=== PATIENT | male | born 1975 | race Caucasian/White ===

== ENCOUNTER 2021-07-21 11:47 | Emergency (ER) | payer MEDICAID, OTHER, SELFPAY ==
[2021-07-21 12:02] VITALS: BP 145/86; PULSE 118; RESP 21; TEMP 36.4; O2SAT 95; BMI 27.4
--- NOTE | 2021-07-21 12:18 | ECG_ITS ---
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 Measurements Intervals [place] Rate: 93 P: 55 MS: 146 QRS: 71 QRSD: 84 T: 47 QT: 346 QTc: 430 Interpretive Statements SINUS RHYTHM Possible old septal CA No previous ECG available for comparison Electronically Signed On 07-21-2021 23:43:42 PARKING ENFORCEMENT MANAGER by Abdirizak Trivedi M.D. [id number]
--- NOTE | 2021-07-21 12:20 | XR_ITS ---
WS: [id number] Chest 2 views, 07/21/2021 Clinical Data: wheezing Comparison: None. Findings: No nodules, masses or effusions are seen. The heart is normal. The pulmonary vascularity is not increased. No pneumonia or pneumothorax is seen. The diaphragms are flattened. There is an anter ior cervical disc fusion. XR/XR chest 2V* [id number] Impression: Hyperinflation.
--- NOTE | 2021-07-21 13:10 | ED_ITS ---
HPI - SOB/Dyspnea General: Chief Complaint: Shortness of Breath/Dyspnea Stated Complaint: SOB Time Seen by Provider: 07/21/21 12:06 Source: patient and family Mode of arrival: ambulatory History of Present Illness: HPI Narrative: 46-year-old male presents emergency department chief complaint of progressive shortness of breath difficulty breathing productive cough is been getting worse the last 3 to 4 days. Patient reports history of pneumonia and bronchitis. Reports that he has also had a headache that developed as well as coughing reports lots of sputum production ranging from clearish to greenish. Patient reports having no other associated symptoms reports no recent sick or ill contacts. MD elicited complaint: shortness of breath and cough Pertinent past history: pneumonia Context: recent illness Timing: constant and progressively worsening Severity: moderate Relieving factors: rest and upright position Associated symptoms: Reports chest congestion; Deny abdominal pain, chest pain, extremity pain, fever(s), nausea, palpitations or vomiting Related Data: Home oxygen amount: none Review of Systems General: Reports: 10 or more systems reviewed and unremarkable except in HPI and below Const: Denies: fever(s), chills, fatigue or malaise Eyes: Denies: change in vision or blurry vision Card: Denies: chest pain or palpitations Resp: Reports: dyspnea, productive cough, wheezing, change in phlegm color and chest congestion GI: Denies: abdominal pain, nausea or vomiting : Denies: flank pain Musc: Denies: extremity pain or extremity swelling Skin/Breast: Denies: rash or pruritus Neuro: Denies: headache(s) Psych: Denies: anxiety or depression Jasson/Lymph: Denies: easy bleeding All/Imm: Denies: urticaria, throat swelling or facial swelling Physical Exam Narrative: EXAM NARRATIVE: Patient appears in no obvious acute distress however is actively heavily expiratory wheezing on exam. Const: COMMON NORMALS: no acute distress, patient oriented x3 and healthy appearing HENMT: COMMON NORMALS: normocephalic and atraumatic HEAD & SCALP: normocephalic and atraumatic Eye: COMMON NORMALS: Equal, round and reactive pupils present and EOMs intact bilaterally PUPIL: Yes Equal, round and reactive pupils present Neck/C-Spine: COMMON NORMALS: full ROM, supple and no JVD Lymph: LYMPHATIC: no lymphadenopathy noted Chest: COMMONS NORMALS: normal inspection of the chest and normal palpation of entire chest wall Resp: COMMON NORMALS: normal respiratory effort and No retractions EFFORT & INSPECTION: Yes able to speak in complete sentences and Yes symmetric chest movement AUSCULTATION: wheezes (Both inspiratory and expiratory diffuse wheezing noted on exam) expiratory wheezes and inspiratory wheezes and bronchial breath sounds Cardio: COMMON NORMALS: no JVD and regular rate; negative for regular rhythm (Moderate tachycardia noted exam rate in 115- 120 range) RATE: regular rate RHYTHM: abnormal rhythm (Moderate tachycardia noted exam rate in 115- 120 range) GI: COMMON NORMALS: Normal to inspection, nondistended, normoactive bowel sounds present, Soft to palpation and non-tender INSPECTION: Yes normal to inspection PALPATION: Yes Soft to palpation : COMMON NORMALS: Yes no CVA tenderness BLADDER/KIDNEY EXAM: Yes no CVA tenderness Back/Pelvis: COMMON NORMALS: no CVA tenderness Extremity: COMMON NORMALS: normal to inspection and full ROM Neuro: COMMON NORMALS: patient oriented x3, CN's II-XII intact bilaterally, moves all extremities and no focal motor deficits Psych: COMMON NORMALS: mental status grossly normal, Normal thought process present, cooperative and normal affect THOUGHT PROCESS: Normal thought process present Skin: COMMON NORMALS: no rashes or lesions noted GENERAL SKIN EXAM: no juan miguel hes or lesions noted Course Vital Signs: Vital signs: Vital Signs Temperature 97.6 F 07/21/21 12:02 Pulse Rate 105 H 07/21/21 13:48 Respiratory Rate 18 07/21/21 13:48 Blood Pressure 146/122 07/21/21 13:36 Pulse Oximetry 93 07/21/21 13:48 MDM - SOB/Dyspnea MDM Narrative: Medical decision making narrative: Due to the patient's symptoms and condition lab work and imaging will be obtained we will continue to follow EKG looked unremarkable due to the patient's symptoms and condition lab work and imaging will be obtained we will continue to follow medication with provider for his breathing difficulties as well. Patient was found to have acute bronchitis he did have a slight white blood cell count elevation start him on some antibiotics for this no obvious pneumonia or infiltrate was noted on his chest x-ray as well as his Covid and influenza swabs came back negative patient was advised further follow-up with primary care in 2 to 3 days which is advised to return in the interim if any of his symptoms persist or worse. Lab Data: Labs: Lab Results 07/21/21 07/21/21 07/21/21 13:00 13:00 13:00 WBC 13.0 10^3/uL H 10 ^3/uL (4.0-10.0) RBC 5.78 10^6/uL H 10 ^6/uL (4.1-5.3) Hgb 17.8 g/dL H g/dL (11.7-16.6) Hct 52.8 % H % (42.0-52.0) MCV 91.3 fl fl (80-94) MCH 30.8 pg pg (28.0-34.0) MCHC 33.7 g/dL g/dL (30.0-36.0) RDW 12.2 % % (12.1-15.1) Plt Count 360 10^3/cmm 10^3 /cmm (130-400) MPV 9.2 fL fL (7.4-10.4) Neut % (Auto) 65.2 % % Lymph % (Auto) 17.4 % % [place] % (Auto) 9.8 % % Eos % (Auto) 6.8 % % Baso % (Auto) 0.5 % % Neut # (Auto) 8.48 10^3/uL H 10 ^3/uL (1.8-7.7) Lymph # (Auto) 2.3 10^3/uL 10^3/ uL (0.8-4.8) [place] # (Auto) 1.3 10^3/uL H 10^ 3/uL (0.2-0.9) Eos # (Auto) 0.9 10^3/uL H 10^ 3/uL (0.0-0.8) Baso # (Auto) 0.1 10^3/uL 10^3/ uL (0.0-0.1) Nucleated RBC % (a uto) 0 % % Nucleated RBCs # 0.0 /100WBC /100W BC Sodium 138 mmol/L mmol/L (136-145) Potassium 4.4 mmol/L mmol/L (3.5-5.1) Chloride 100 mmol/L mmol/L (98-107) Carbon Dioxide 23 mmol/L mmol/L (22-29) Anion Gap 19.4 H (5-19) BUN 7 mg/dL mg/dL (6-20) Creatinine 0.7 mg/dL mg/dL (0.7-1.2) GFR Calculation 120.4 mL/min mL/m in (90-130) Glucose 106 mg/dL mg/dL (65-115) Calculated Osmolal ity 284 mOsm/kg L mOs m/kg (285-295) Lactic Acid 1.5 mmol/L mmol/L (0.5-2.2) Calcium 9.3 mg/dL mg/dL (8.5-10.5) Total Bilirubin 0.8 mg/dL mg/dL (0.15-1.2) AST 22 U/L U/L (0-40) ALT 20 U/L U/L (0-41) Alkaline Phosphata se 84 IU/L IU/L (40-130) Total Protein 7.3 g/dL g/dL (6.6-8.7) Albumin 4.7 g/dL g/dL (3.5-5.2) Globulin 2.6 g/dL g/dL (1.3-4.6) Influenza Type A A g Influenza Type B A g SARS-CoV-2 Ag (Rap id) 07/21/21 07/21/21 13:00 13:00 WBC RBC Hgb Hct MCV MCH MCHC RDW Plt Count MPV Neut % (Auto) Lymph % (Auto) [place] % (Auto) Eos % (Auto) Baso % (Auto) Neut # (Auto) Lymph # (Auto) [place] # (Auto) Eos # (Auto) Baso # (Auto) Nucleated RBC % (a uto) Nucleated RBCs # Sodium Potassium Chloride Carbon Dioxide Anion Gap BUN Creatinine GFR Calculation Glucose Calculated Osmolal ity Lactic Acid Calcium Total Bilirubin AST ALT Alkaline Phosphata se Total Protein Albumin Globulin Influenza Type A A g Negative (Negative) Influenza Type B A g Negative (Negative) SARS-CoV-2 Ag (Rap id) Negative (Negative) Discharge Plan Discharge Patient Disposition: Home Clinical Impression: Acute bronchitis Condition: Stable Prescriptions: New prednisone 20 mg tablet 20 mg PO BID 7 Days Qty: 14 RF: 0 Ventolin HFA 90 mcg/actuation HFA aerosol inhaler 2 inh inhalation Q4H PRN (Reason: shortness of breath or wheezing) Qty: 8.5 RF: 0 Tessalon Perles 100 mg capsule 100 mg PO TID PRN (Reason: cough) Qty: 20 RF: 0 azithromycin 250 mg tablet See Rx Instructions .ROUTE .COMPLEX Qty: 6 RF: 0 Discharge Orders: Discharge ED (Routine); Ordered 07/21/21 Ordered By: Elvis Abdi Referrals: Onel Archuleta MD [Staff Physician] - (in 2-3 days if you do not have a primary care doctor. ) Discharge Diet: Advance as tolerated Patient Instructions: COPD (Chronic Obstructive Pulmonary Disease) (ED), How to Use a Nebulizer (ED), Wheezing (ED) Coding Level of Care Code ED Manager Water for Chg Fwd Exam Comprehensive
[2021-07-21 13:20] LABS: Basophils # 0.1 10^3/uL (0.0-0.1); Basophils % 0.5 %; Eosinophils # 0.9 10^3/uL (0.0-0.8); Eosinophils % 6.8 %; Hematocrit 52.8 % (42.0-52.0); Hemoglobin 17.8 g/dL (11.7-16.6); Lymphocytes # 2.3 10^3/uL (0.8-4.8); Lymphocytes % 17.4 %; Mean Corpuscular HGB Conc 33.7 g/dL (30.0-36.0); Mean Corpuscular Hemoglobin 30.8 pg (28.0-34.0); Mean Corpuscular Volume 91.3 fl (80-94); Mean Platelet Volume 9.2 fL (7.4-10.4); Monocytes # 1.3 10^3/uL (0.2-0.9); Monocytes % 9.8 %; Neutrophils # 8.48 10^3/uL (1.8-7.7); Neutrophils % 65.2 %; Nucleated Red Blood Cells % 0 %; Platelet Count 360 10^3/cmm (130-400); Red Blood Count 5.78 10^6/uL (4.1-5.3); Red Cell Distribution Width 12.2 % (12.1-15.1)
[2021-07-21] MEDS: sodium chloride 0.9% 1,000 ML 999 ML IV (13:32)
[2021-07-21] MEDS: magnesium sulfate premix 2 GM/50 ML PIGGYBACK IV (13:34)
[2021-07-21 13:35] VITALS: PULSE 105; RESP 18; O2SAT 94
[2021-07-21] MEDS: ipratropium-albuterol 3 mL Neb INHALATION (13:35)
[2021-07-21 13:36] VITALS: BP 146/122; PULSE 105; RESP 18; O2SAT 93
[2021-07-21 13:38] LABS: Lactic Sepsis W/Reflex 1.5 mmol/L (0.5-2.2)
[2021-07-21 13:39] LABS: Alanine Aminotransferase 20 U/L (0-41); Albumin Level 4.7 g/dL (3.5-5.2); Alkaline Phosphatase 84 IU/L (40-130); Anion Gap 19.4 (5-19); Aspartate Amino Transferase 22 U/L (0-40); Blood Urea Nitrogen 7 mg/dL (6-20); Calcium 9.3 mg/dL (8.5-10.5); Carbon Dioxide 23 mmol/L (22-29); Chloride 100 mmol/L (98-107); Globulin 2.6 g/dL (1.3-4.6); Glomerular Filtration Rate 120.4 mL/min (90-130); Glucose 106 mg/dL (65-115); Osmolality Calculated 284 mOsm/kg (285-295); Potassium 4.4 mmol/L (3.5-5.1); Sodium 138 mmol/L (136-145); Total Bilirubin 0.8 mg/dL (0.15-1.2); Total Protein 7.3 g/dL (6.6-8.7)
[2021-07-21 13:45] LABS: Influenza A by IFA Negative (Negative); Influenza B by IFA Negative (Negative); SARS Covid-2 Antigen Negative (Negative)
[2021-07-21 13:48] VITALS: PULSE 105; RESP 18; O2SAT 93
[2021-07-21] MEDS: cefTRIAXone 1,000 MG in sodium chloride 0.9% (plus) 50 ML 100 MG IV (15:06)
[2021-07-21 15:07] VITALS: BP 120/77; PULSE 95; RESP 16; O2SAT 92
[2021-07-21 15:55] VITALS: BP 120/77; PULSE 83; RESP 18; O2SAT 92
== END 2021-07-21 15:59 | disposition home or self-care (01) ==
PROVIDERS: Emergency Provider Emergency Medicine
DX: J20.9 Acute bronchitis, unspecified (principal); Z20.822 Contact with and (suspected) exposure to COVID-19
CPT/HCPCS: 71046; 80053; 83605; 85025; 87070; 87205; 87426; 87804; 93005; 94640; 96365; 96367; 96375; 99284; J0696; J2930; J3475; J7030

== ENCOUNTER 2021-08-02 06:20 | Emergency (ER) | payer MEDICAID, OTHER, SELFPAY ==
[2021-08-02] VITALS (10 sets, daily range): BP systolic 122–170; BP diastolic 96–104; PULSE 85–103; RESP 11–22; TEMP 36.7; O2SAT 90–98; BMI 27.4
--- NOTE | 2021-08-02 06:34 | XRR_ITS ---
PROCEDURE INFORMATION: Exam: XR Chest Exam date and time: 08/02/2021 6:34 AM Age: 46 years old Clinical indication: Cough and shortness of breath and other: Bronchitis? ; Patient HX: Dyspnea; Cough; Bronchitis? . Has been on prednisone; After predisone done came back TECHNIQUE: Imaging protocol: XR of the chest. Views: 1 view. Total images: 1 COMPARISON: CR XR chest 2V* [id number] 07/21/2021 12:31 PM FINDINGS: Lungs: Unremarkable. No consolidation. Pleural spaces: Unremarkable. No pleural effusion. No pneumothorax. Heart/Mediastinum: Unremarkable. No cardiomegaly. Bones/joints: Unremarkable. XR/XR chest 1V portable [id number] IMPRESSION: No acute findings.
--- NOTE | 2021-08-02 06:35 | W.ED.SOB ---
HPI - SOB/Dyspnea General: Chief Complaint: Shortness of Breath/Dyspnea Stated Complaint: TROUBLE BREATHING,WHEEZING,CHEST TIGHTNESS Time Seen by Provider: 08/02/21 06:30 History of Present Illness: HPI Narrative: 46-year-old male presents emergency room with complaints of shortness of breath and cough. He was seen on 07 21 as well treated with steroids Zithromax and albuterol. He was improving until the steroids read out that he began to have trouble again. He did get a rapid Covid at that time which was negative but there was no PCR done. He denies any chest pain he has not had any productive cough. He is a former heavy smoker but quit about 18 years ago. He is not previously been vaccinated for Covid nor has he been known to test positive in the past. MD elicited complaint: shortness of breath and cough Pertinent past history: COPD Onset (ago): week(s) Timing: constant and progressively worsening Severity: moderate Exacerbating factors: exertion and coughing Relieving factors: rest, bronchodilators and other (steriods) Known history of: COPD Associated symptoms: Reports chest congestion and cough; Deny abdominal pain, chest pain, diaphoresis, dizziness, extremity pain, fever(s), hemoptysis, lightheadedness, myalgias, nausea, orthopnea, palpitations, paresthesias, polydipsia, polyuria, rash, sense of impending doom, syncope or vomiting Treatment prior to arrival: oxygen and bronchodilator Review of Systems Const: Denies: fever(s) or diaphoresis ENMT: Denies: throat pain, ear or mastoid pain, nasal discharge or nasal congestion Card: Denies: chest pain, palpitations, lightheadedness, syncope or orthopnea Resp: Reports: dyspnea, non-productive cough, wheezing and chest congestion; Denies: hemoptysis GI: Denies: abdominal pain, nausea or vomiting : Denies: flank pain, dysuria, urinary frequency or urinary urgency Musc: Denies: extremity pain Skin/Breast: Denies: rash or pruritus Neuro: Denies: dizziness Endo: Denies: polyuria or polydipsia Physical Exam Const: GENERAL APPEARANCE: cooperative and comfortable ORIENTATION/CONSCIOUSNESS: Yes awake, Yes oriented to person, Yes oriented to place and Yes oriented to time HENMT: COMMON NORMALS: normocephalic, atraumatic and hearing grossly normal bilaterally HEAD & SCALP: normocephalic and atraumatic Resp: EFFORT & INSPECTION: Yes tachypneic and Yes pursed lip breathing AUSCULTATION: rhonchi and wheezes Cardio: COMMON NORMALS: regular rhythm and No murmurs present (Cardio) RATE: tachycardic RHYTHM: regular rhythm GI: COMMON NORMALS: Soft to palpation and No hepatosplenomegaly present AUSCULTATION: Yes normoactive bowel sounds PALPATION: Yes Soft to palpation, No Tenderness to palpation present (GI), No Guarding due to palpation present (GI) and Yes No hepatosplenomegaly present Extremity: COMMON NORMALS: normal to inspection, capillary refill normal, no clubbing, cyanosis or edema, no calf tenderness and no pedal edema Neuro: SENSORIUM/ORIENTATION: Yes oriented to person, Yes oriented to place and Yes oriented to time Skin: COMMON NORMALS: no rashes or lesions noted GENERAL SKIN EXAM: no rashes or lesions noted Course Vital Signs: Vital signs: Vital Signs Temperature 98.0 F 08/02/21 06:26 Pulse Rate 85 08/02/21 08:57 Respiratory Rate 18 08/02/21 08:56 Blood Pressure 122/96 08/02/21 08:25 Pulse Oximetry 94 08/02/21 08:56 MDM - SOB/Dyspnea MDM Narrative: Medical decision making narrative: Labs imaging and EKGs reviewed as found on the chart. Patient has been much better after the albuterol inhaler. He was coached through using the inhaler by the respiratory recreation therapy aides teacher and noted that at home he had been using it wrong he states he had significant improvement after RT helped him use the medication prior he states he just had the taste of the medication his mouth but really did not have any breathing improvement. Chest x-ray does not show any sign of pneumonia. I think with better use of the albuterol he will have follow less issues. More importantly he needs to be on maintenance medication we will start him on Symbicort 2 puffs twice daily. He will get him set up for pulmonary function test and have him see pulmonology as well. In the interim while he is starting the Symbicort we will put him on another Medrol Dosepak. Return if he has any further problems. We did screen today for COVID-19 with a PCR if that is positive we will contact him asked him to remain in quarantine until the results are back. Lab Data: Labs: Lab Results 08/02/21 08/02/21 08/02/21 06:28 06:28 06:28 WBC 10.3 10^3/uL H 10 ^3/uL (4.0-10.0) RBC 5.70 10^6/uL H 10 ^6/uL (4.1-5.3) Hgb 17.7 g/dL H g/dL (11.7-16.6) Hct 52.3 % H % (42.0-52.0) MCV 91.8 fl fl (80-94) MCH 31.1 pg pg (28.0-34.0) MCHC 33.8 g/dL g/dL (30.0-36.0) RDW 11.9 % L % (12.1-15.1) Plt Count 324 10^3/cmm 10^3 /cmm (130-400) MPV 9.0 fL fL (7.4-10.4) Neut % (Auto) 52.3 % % Lymph % (Auto) 23.1 % % [place] % (Auto) 13.1 % % Eos % (Auto) 10.3 % % Baso % (Auto) 0.5 % % Neut # (Auto) 5.37 10^3/uL 10^3 /uL (1.8-7.7) Lymph # (Auto) 2.4 10^3/uL 10^3/ uL (0.8-4.8) [place] # (Auto) 1.3 10^3/uL H 10^ 3/uL (0.2-0.9) Eos # (Auto) 1.1 10^3/uL H 10^ 3/uL (0.0-0.8) Baso # (Auto) 0.1 10^3/uL 10^3/ uL (0.0-0.1) Nucleated RBC % (a uto) 0 % % Nucleated RBCs # 0.0 /100WBC /100W BC PT 11.70 SECONDS L S ECONDS (12.1-14.9) INR 0.83 (0.8-1.2) APTT 25.8 SECONDS SECO NDS (23.9-36.7) D-Dimer 0.34 ug/mIFEU ug/ mIFEU (0-0.59) Sodium 140 mmol/L mmol/L (136-145) Potassium 4.3 mmol/L mmol/L (3.5-5.1) Chloride 101 mmol/L mmol/L (98-107) Carbon Dioxide 30 mmol/L H mmol/ L (22-29) Anion Gap 13.3 (5-19) BUN 8 mg/dL mg/dL (6-20) Creatinine 0.8 mg/dL mg/dL (0.7-1.2) GFR Calculation 103.2 mL/min mL/m in (90-130) Glucose 100 mg/dL mg/dL (65-115) Calculated Osmolal ity 288 mOsm/kg mOsm/ kg (285-295) Calcium 9.0 mg/dL mg/dL (8.5-10.5) Total Bilirubin 0.4 mg/dL mg/dL (0.15-1.2) AST 17 U/L U/L (0-40) ALT 26 U/L U/L (0-41) Alkaline Phosphata se 85 IU/L IU/L (40-130) Creatine Kinase 309 U/L H U/L (39-308) Troponin T Baselin e Troponin T 120 Min ethan Delta Troponin T Total Protein 6.8 g/dL g/dL (6.6-8.7) Albumin 4.5 g/dL g/dL (3.5-5.2) Globulin 2.3 g/dL g/dL (1.3-4.6) SARS-CoV-2 Ag (Rap id) 08/02/21 08/02/21 08/02/21 06:28 06:52 08:22 WBC RBC Hgb Hct MCV MCH MCHC RDW Plt Count MPV Neut % (Auto) Lymph % (Auto) [place] % (Auto) Eos % (Auto) Baso % (Auto) Neut # (Auto) Lymph # (Auto) [place] # (Auto) Eos # (Auto) Baso # (Auto) Nucleated RBC % (a uto) Nucleated RBCs # PT INR APTT D-Dimer Sodium Potassium Chloride Carbon Dioxide Anion Gap BUN Creatinine GFR Calculation Glucose Calculated Osmolal ity Calcium Total Bilirubin AST ALT Alkaline Phosphata se Creatine Kinase Troponin T Baselin e 12 ng/L ng/L (0-15) Troponin T 120 Min ethan 12.30 ng/L ng/L (0-15) Delta Troponin T 0.30 ABS# ABS# (0-10) Total Protein Albumin Globulin SARS-CoV-2 Ag (Rap id) Negative (Negative) Discharge Plan Discharge Patient Disposition: Home Clinical Impression: Acute exacerbation of chronic obstructive airways disease Condition: Stable Prescriptions: New Medrol (Macario) 4 mg tablets,dose pack See Rx Instructions .ROUTE .COMPLEX Qty: 21 RF: 0 Symbicort 80-4.5 mcg/actuation HFA aerosol inhaler 2 inh inhalation BID Qty: 10.2 RF: 0 No Action Tylenol PM Extra Strength 25-500 mg Tablet 2 tab PO BEDTIME PRN (Reason: Sleep) RF: 0 magnesium 1 cap PO DAILY RF: 0 zinc 1 cap PO DAILY RF: 0 albuterol sulfate [Ventolin HFA] 90 mcg/actuation HFA aerosol inhaler 2 inh inhalation Q4H PRN (Reason: shortness of breath or wheezing) Qty: 8.5 RF: 0 benzonatate [Tessalon Perles] 100 mg capsule 100 mg PO TID PRN (Reason: cough) Qty: 20 RF: 0 Discharge Orders: Discharge ED (Routine); Ordered 08/02/21 Ordered By: Eliel Nieto Discharge Diet: Usual diet Discharge Activity: Increase activity as tolerated Patient Instructions: Opioid Safety Activity Restrictions/Additional Instructions: manager statistics will make arrangements for you to have outpatient pulmonary function test and then follow-up with pulmonology. Coding Level of Care Code ED Conservation Policy Analyst for Margaret Fwd Exam Detailed
[2021-08-02 06:43] LABS: Basophils # 0.1 10^3/uL (0.0-0.1); Basophils % 0.5 %; Eosinophils # 1.1 10^3/uL (0.0-0.8); Eosinophils % 10.3 %; Hematocrit 52.3 % (42.0-52.0); Hemoglobin 17.7 g/dL (11.7-16.6); Lymphocytes # 2.4 10^3/uL (0.8-4.8); Lymphocytes % 23.1 %; Mean Corpuscular HGB Conc 33.8 g/dL (30.0-36.0); Mean Corpuscular Hemoglobin 31.1 pg (28.0-34.0); Mean Corpuscular Volume 91.8 fl (80-94); Monocytes # 1.3 10^3/uL (0.2-0.9); Monocytes % 13.1 %; Neutrophils # 5.37 10^3/uL (1.8-7.7); Neutrophils % 52.3 %; Nucleated Red Blood Cells % 0 %; Platelet Count 324 10^3/cmm (130-400); Red Cell Distribution Width 11.9 % (12.1-15.1); White Blood Count 10.3 10^3/uL (4.0-10.0)
[2021-08-02] MEDS: aspirin 81 mg Chew Tablet 324 MG PO (06:45)
[2021-08-02] MEDS: metoprolol tartrate 1 mg/1 mL SDV 5 mL 5 MG IVP (06:45)
[2021-08-02 06:53] LABS: INR 0.83 (0.8-1.2)
[2021-08-02 06:54] LABS: Partial Thromboplastin Time 25.8 SECONDS (23.9-36.7)
[2021-08-02 06:56] LABS: D Dimer 0.34 ug/mIFEU (0-0.59)
[2021-08-02 07:04] LABS: Alanine Aminotransferase 26 U/L (0-41); Albumin Level 4.5 g/dL (3.5-5.2); Alkaline Phosphatase 85 IU/L (40-130); Anion Gap 13.3 (5-19); Aspartate Amino Transferase 17 U/L (0-40); Blood Urea Nitrogen 8 mg/dL (6-20); Carbon Dioxide 30 mmol/L (22-29); Chloride 101 mmol/L (98-107); Creatine Phosphokinase 309 U/L (39-308); Globulin 2.3 g/dL (1.3-4.6); Glomerular Filtration Rate 103.2 mL/min (90-130); Glucose 100 mg/dL (65-115); Osmolality Calculated 288 mOsm/kg (285-295); Potassium 4.3 mmol/L (3.5-5.1); Sodium 140 mmol/L (136-145); Total Bilirubin 0.4 mg/dL (0.15-1.2); Total Protein 6.8 g/dL (6.6-8.7)
[2021-08-02 07:05] LABS: Troponin(5th) Baseline 12 ng/L (0-15)
[2021-08-02 07:20] LABS: SARS Covid-2 Antigen Negative (Negative)
--- NOTE | 2021-08-02 08:28 | PC.NURSE ---
nurse in room to round and pt states, I feel like I can't breathe right now and can I get a breathing treatment? . Pt's oxygenation 93% and above on room air. ED physician notified of pt's requests
--- NOTE | 2021-08-02 08:34 | ECG_ITS ---
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 Measurements Intervals [place] Rate: 101 P: 73 ME: 133 QRS: 81 QRSD: 81 T: 64 QT: 309 QTc: 401 Interpretive Statements SINUS TACHYCARDIA ABNORMAL RHYTHM ECG Compared to ECG 07/21/2021 14:22:25 Sinus rhythm no longer present Electronically Signed On 08-04-2021 0:15:24 SOFTWARE CONSULTANT by Abdirizak Trivedi M.D. [email or web address] of mississippi medical centerSunlight Foundationeast liverpool city hospitalWetradetogether/store/NU/[id number] f
[2021-08-02] MEDS: dexamethasone 10 mg/mL INJ IVP (08:44)
--- NOTE | 2021-08-02 08:50 | PC.NURSE ---
pt reports improvement in symptoms post inhaler treatment
[2021-08-02] MEDS: albuterol 8 gm MDI 2 PUFF INHALATION (08:53)
--- NOTE | 2021-08-02 12:34 | ECG_ITS ---
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 Measurements Intervals [place] Rate: 80 P: 60 UT: 134 QRS: 75 QRSD: 82 T: 60 QT: 341 QTc: 394 Interpretive Statements SINUS RHYTHM Compared to ECG 07/21/2021 14:22:25 No significant changes Electronically Signed On 08-04-2021 0:16:22 SHIFT STACKER by Abdirizak Trivedi M.D. [email or web address] Technologiesuc [email or web address] Mail/store/[id number]
[2021-08-02 13:52] LABS: Coronavirus Test Green County Not Detected
--- NOTE | 2021-08-02 16:12 | PC.NURSE ---
Pt notified of Negative COVID test
--- NOTE | 2021-08-03 07:42 | DCPLANNER ---
manager baby had message to schedule a follow up appointment for patient with [facility] and to schedule an outpatient PFT. manager baby called [facility], spoke with Meaghan Bauer, gave clinic patients information. A follow up appointment was scheduled for Wednesday, September 01, 2021 at 10:[address] Wise. manager baby called patient, spoke with his , gave her the appointment information. manager baby also faxed signed order to centralized scheduling for the PFT to be scheduled, centralized scheduling will call patient with the appointment information.
--- NOTE | 2021-08-03 09:35 | PC.NURSE ---
No voicemail set up. Pt has not been contacted
--- NOTE | 2021-09-02 06:36 | DCPLANNER ---
Patient had a follow up appointment scheduled with pulmonology for 09.01.21 - patient did attend appointment.
--- NOTE | 2021-09-15 09:24 | DCPLANNER ---
Addendum entered by Maritza Hunter 10/15/21 11:37: Patient had a PFT scheduled for 10.05.21 - patient did attend this appointment. Patient had a follow up appointment scheduled for 09.01.[address] Wise at [facility] - patient did attend appointment. Original Note: Patient has a PFT scheduled for 10.05.21, centralized scheduling will call patient with appointment information.
== END 2021-08-02 09:16 | disposition home or self-care (01) ==
PROVIDERS: Emergency Provider Family Medicine
DX: J44.1 Chronic obstructive pulmonary disease with (acute) exacerbation (principal); Z20.822 Contact with and (suspected) exposure to COVID-19
CPT/HCPCS: 36415; 71045; 80053; 82550; 84484; 85025; 85378; 85610; 85730; 87426; 87635; 93005; 94640; 96374; 96375; 99284; J1100; J3490; J3535

== ENCOUNTER 2021-09-01 11:47 | Outpatient (CLI) | payer MEDICAID, SELFPAY ==
[2021-09-01 12:33] LABS: Basophils # 0.1 10^3/uL (0.0-0.1); Basophils % 0.5 %; Eosinophils # 0.4 10^3/uL (0.0-0.8); Eosinophils % 3.8 %; Hematocrit 52.5 % (42.0-52.0); Hemoglobin 17.2 g/dL (11.7-16.6); Lymphocytes # 2.8 10^3/uL (0.8-4.8); Lymphocytes % 29.1 %; Mean Corpuscular HGB Conc 32.8 g/dL (30.0-36.0); Mean Corpuscular Hemoglobin 30.4 pg (28.0-34.0); Mean Corpuscular Volume 92.9 fl (80-94); Mean Platelet Volume 9.3 fL (7.4-10.4); Monocytes # 1.1 10^3/uL (0.2-0.9); Monocytes % 10.9 %; Neutrophils # 5.29 10^3/uL (1.8-7.7); Neutrophils % 55.1 %; Nucleated Red Blood Cells % 0 %; Platelet Count 317 10^3/cmm (130-400); Red Blood Count 5.65 10^6/uL (4.1-5.3); Red Cell Distribution Width 11.9 % (12.1-15.1); White Blood Count 9.6 10^3/uL (4.0-10.0)
[2021-09-02 09:52] LABS: Alpha 1 Antitrypsin 158 mg/dL (83-199)
[2021-09-02 16:02] LABS: Alternaria Alternata (M6) Ige 2.18 kU/L; Alternaria Class 2; Bermuda Class 0/1; Bermuda Grass (G2) Ige 0.19 kU/L; Cat Dander (E1) Ige <0.10 kU/L; Cat Dander Class 0; Common Ragweed (Short) (W1) Ig 3.16 kU/L; D. Farinae Class 1; Dermatophagoides Class 2; Dermatophagoides Farinae (D2) 0.62 kU/L; Dermatophagoides Pteronyssinus 2.84 kU/L; Dog Dander (E5) Ige <0.10 kU/L; Dog Dander Class 0; Elm (T8) Ige 0.21 kU/L; Elm Class 0/1; English Plantain (W9) Ige 0.15 kU/L; English Plantain Class 0/1; House Dust (Greer) (H1) Ige 0.39 kU/L; House Dust (Hollister- Stier) 0.46 kU/L; House Dust Class 1; Immunoglobulin E 488 kU/L (<OR=114); Immunoglobulin E 492 kU/L (<OR=114); Johnson Grass (G10) Ige 0.23 kU/L; Johnson Grass Cl 0/1; June Grass Class 0/1; June Grass(Kentucky Blue) (G8) 0.13 kU/L; Lamb'S Quarters (Goose Foot) 0.23 kU/L; Lamb'S Quarters Class 0/1; Maple (Box Elder) (T1) Ige <0.10 kU/L; Maple Class 0; Meadow Fescue (G4) Ige 0.12 kU/L; Meadow Fescue Class 0/1; Mucor Racemosus Class 0; Oak Class 0/1; Orchard Grass (Cocksfoot) (G3) 0.12 kU/L; Penicillium Class 0; Penicillium Notatum (M1) Ige <0.10 kU/L; Perennial Rye Grass (G5) Ige <0.10 kU/L; Perennial Rye Grass Class 0; Ragweeed Class 2; Rough Marsh Elder (W16) Ige <0.10 kU/L; Rough Marsh Elder Class 0; Sweet Vernal Class 0; Sweet Vernal Grass (G1) Ige <0.10 kU/L; Timothy Grass (G6) Ige 0.11 kU/L; Timothy Grass Class 0/1
[2021-09-06 16:12] LABS: Aspergillus Fumigatus, Igg Ab, 27.5 mg/L (<=102)
== END 2021-09-01 11:48 | disposition home or self-care (01) ==
LOC: LAB 11:49
PROVIDERS: PCP Nurse Practitioner Family; Visit Provider Internal Medicine Pulmonary Disease
DX: J44.9 Chronic obstructive pulmonary disease, unspecified (principal); R05.9 Cough, unspecified; R06.02 Shortness of breath
CPT/HCPCS: 82103; 82785; 85025; 86003

== ENCOUNTER → 2021-09-29 14:50 | Outpatient (BNVA) | payer MEDICAID, SELFPAY | PROVIDERS: PCP Nurse Practitioner Family; Visit Provider Internal Medicine Pulmonary Disease | DX: Z01.812 Encounter for preprocedural laboratory examination (principal); Z20.822 Contact with and (suspected) exposure to COVID-19 | CPT/HCPCS: 87635 ==

== ENCOUNTER 2021-10-05 07:54 | Outpatient (CLI) | payer MEDICAID, SELFPAY ==
--- NOTE | 2021-10-05 13:29 | PFTS_ITS ---
Date of Study:10/05/21 Date of Dictation: 10/05/2021 MECHANICS: Prebronchodilator forced vital capacity (FVC) is normal. Prebronchodilator forced expiratory volume in one second (FEV1) is normal. FEV1/FVC is normal. FLOW VOLUME LOOP: Normal . LUNG VOLUMES: Total lung capacity (TLC) is mildly reduced. Residual volume (RV) is . DIFFUSING CAPACITY FOR CARBON MONOXIDE: Mildly reduced 65% . INTERPRETATION: The prebronchodilator spirometry is normal. There is no postbronchodilator study. Total lung capacity is mildly reduced suggestive of mild restriction. There is mild gas transfer defect. Correlate clinically. MTDD
== END 2021-10-05 07:55 | disposition home or self-care (01) ==
LOC: RT 07:56
PROVIDERS: PCP Nurse Practitioner Family; Visit Provider Family Medicine
DX: J44.9 Chronic obstructive pulmonary disease, unspecified (principal); J45.909 Unspecified asthma, uncomplicated
CPT/HCPCS: 94010; 94726; 94729

== ENCOUNTER → 2022-02-23 12:10 | Outpatient (BNVA) | payer MEDICAID, SELFPAY | PROVIDERS: PCP Nurse Practitioner Family; Visit Provider Nurse Practitioner Family | DX: M54.2 Cervicalgia (principal); M19.90 Unspecified osteoarthritis, unspecified site; Z12.5 Encounter for screening for malignant neoplasm of prostate; Z98.890 Other specified postprocedural states; Z13.6 Encounter for screening for cardiovascular disorders; J44.9 Chronic obstructive pulmonary disease, unspecified; G89.29 Other chronic pain | CPT/HCPCS: 80053; 80061; G0103 ==

== ENCOUNTER → 2022-04-28 11:16 | Outpatient (BNVA) | payer OTHER, MEDICAID, SELFPAY | PROVIDERS: PCP Nurse Practitioner Family; Visit Provider Anesthesiology Pain Medicine | DX: M54.2 Cervicalgia (principal) | CPT/HCPCS: 72040 ==